=== PATIENT | female | born 1975 | race Caucasian/White ===

== ENCOUNTER 2020-02-22 11:20 | Emergency (ER) | payer OTHER ==
[~2020-02-22] VITALS: Ht 175.3 cm; Wt 56.7 kg
[2020-02-22 11:29] VITALS: BP 106/73
--- NOTE | 2020-02-22 11:35 | NUR ---
PT AMBULATED TO BED4.
--- NOTE | 2020-02-22 12:05 | NUR ---
C/O RLQ ABD PAIN 8/10 X 3 DAYS ACCOMPANIED BY DIARRHEA AND NAUSEA. 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 PT REPORTS NORMAL MESTRUAL FLOW, NO ABNORMAL BLEEDING. ABDOMEN SOFT/FLAT NON TENDER. BOWEL SOUNDS PRESENT X4. DENIES FEVER, CHILLS, VOMITING ETC. BED IN LOW POSITION, SIDE RAIL UP X1
[2020-02-22] MEDS ORDERED: NACL 0.9% 1,000 ML IV SCH (12:11)
[2020-02-22] MEDS ORDERED: KETOROLAC 30 MG/ML VIAL IVP ONE (12:15)
[2020-02-22] MEDS ORDERED: cefTRIAXone 1,000 MG in DEXT 5% MINI-BAG PLUS 50 ML IV ONE (12:15)
--- NOTE | 2020-02-22 12:20 | NUR ---
PT REFUSING LABWORK, IV FLUIDS AND ANTIBIOTICS. DR. MAHARAJ MADE AWARE AND WILL SEE PT.
[2020-02-22 12:39] VITALS: BP 106/73
--- NOTE | 2020-02-22 12:40 | NUR ---
Patient discharged with v/s stable. Written and verbal after care instructions given and explained regarding pyelonephritis . Patient alert, oriented and verbalized understanding of instructions. Ambulatory with steady gait. All questions addressed prior to discharge. ID band removed. Patient advised to follow up with PMD. Rx of cephalexin given. Patient educated on indication of medication including possible reaction and side effects. Opportunity to ask questions provided and answered.
== END 2020-02-22 12:40 | disposition home or self-care (01) ==
LOC: MED 11:20
DX: N12 Tubulo-interstitial nephritis, not specified as acute or chronic (principal); R19.7 Diarrhea, unspecified; F17.210 Nicotine dependence, cigarettes, uncomplicated
CPT/HCPCS: 81002; 81025; 99283

== ENCOUNTER 2020-11-07 13:36 | Emergency (ER) | payer OTHER ==
[~2020-11-07] VITALS: Ht 162.6 cm; Wt 49.9 kg
[2020-11-07 13:36] VITALS: BP 149/84
--- NOTE | 2020-11-07 13:37 | NUR ---
Patient transferred to bed 4 via wheelchair by tech. RN evaluating the patient at bedside.
--- NOTE | 2020-11-07 13:49 | NUR ---
Dr. Velez is evaluating the patient at bedside.
[2020-11-07] MEDS ORDERED: ONDANSETRON 4 MG ODT PO ONE (13:55)
[2020-11-07] MEDS ORDERED: LORazepam 2 MG/ML VIAL IM ONE (13:55)
[2020-11-07] MEDS ORDERED: NACL 0.9% 1,000 ML IV ONE (14:25)
[2020-11-07 14:39] LABS: BASOPHILS % (AUTO) 0.2 % (0.0-2.0); EOSINOPHILS % (AUTO) 0.1 % (0.0-4.0); HEMATOCRIT 33.6 % (36-48); HEMOGLOBIN 10.8 g/dL (12.0-16.0); LYMPHOCYTES # (AUTO) 0.1 K/uL (2.5-16.5); LYMPHOCYTES % (AUTO) 2.2 % (20.5-51.1); MEAN CORPUSCULAR HEMOGLOBIN 25 pg (27-31); MEAN CORPUSCULAR HGB CONC 32 g/dL (33-37); MEAN CORPUSCULAR VOLUME 76.6 fL (80-94); MONOCYTES % (AUTO) 0.5 % (1.7-9.3); PLATELET COUNT (AUTO) 197 K/uL (140-450); RED BLOOD CELL COUNT(AUTO) 4.39 MIL/uL (4.20-5.40); RED CELL DISTRIBUTION WIDTH 15.9 % (11.6-13.7); WHITE BLOOD COUNT (AUTO) 6.2 K/uL (4.8-10.8)
[2020-11-07 14:49] LABS: ANION GAP 13.6 (8-16); CARBON DIOXIDE 25.8 mmol/L (21-32); CREATININE 0.9 mg/dL (0.6-1.3); POTASSIUM 3.4 mmol/L (3.5-5.1)
--- NOTE | 2020-11-07 14:50 | NUR ---
44 Y/O BIB SPOUSE, PT PRESENTS TO ED WITH NAUSEA, MENSTRUAL CRAMPS AND UPPER EXTREMITY PAIN THAT STARTED TODAY. PT STATES "WHEN I GET CLOSER TO MY PERIOD, I GET REALLY BAD CRAMPS AND THE PAIN IS SO BAD I WANT TO PASS OUT". SKIN IS PINK/WARM/DRY; AAOX3 WITH EVEN AND STEADY GAIT; LUNGS CLEAR BL; HR EVEN AND REGULAR; PT DENIES ANY FEVER, CP, SOB, OR COUGH AT THIS TIME; PATIENT STATES PAIN OF 10/10 AT THIS TIME; VSS; PATIENT POSITIONED FOR COMFORT; HOB ELEVATED; BEDRAILS UP X2; BED DOWN. ER MD MADE AWARE OF PT STATUS PMH: IV DRUG USE, METH USE NKA MED: UNABLE TO OBTAIN
[2020-11-07 14:55] LABS: ALBUMIN 3.4 g/dL (3.4-5.0); TOTAL BILIRUBIN 0.9 mg/dL (0.0-1.0)
--- NOTE | 2020-11-07 15:30 | NUR ---
Dr. Velez is reevaluating patient at bedside.
--- NOTE | 2020-11-07 15:50 | NUR ---
Patient taken to CT scan via wheelchair by tech.
[2020-11-07] MEDS ORDERED: NAPR-54 PO (17:06)
[2020-11-07 17:23] LABS: BARBITURATE, URINE NEGATIVE ng/ml (NEG <=200); BENZODIAZEPINE, URINE NEGATIVE ng/mL (NEG <=200); CANNABINOID, URINE POSITIVE ng/mL (NEG <=50); COCAINE, URINE NEGATIVE ng/mL (NEG <=300); OPIATE, URINE NEGATIVE ng/mL (NEG <=2000); PHENCYCLIDINE SCREEN,URINE NEGATIVE ng/mL (NEG <=25)
[2020-11-07 17:39] VITALS: BP 108/55
--- NOTE | 2020-11-07 17:40 | NUR ---
Patient discharged with v/s stable. Written and verbal after care instructions given and explained. Patient alert, oriented and verbalized understanding of instructions. Ambulatory with to car. All questions addressed prior to discharge. ID band removed. Patient advised to follow up with PMD. Rx of NAPROXEN given. Patient educated on indication of medication including possible reaction and side effects. Opportunity to ask questions provided and answered.
--- NOTE | 2020-11-10 18:48 | NUR ---
LATE ENTRY- 0.9% NS BOLUS DISCONTINUED AT 1545
== END 2020-11-07 17:20 | disposition home or self-care (01) ==
LOC: MED 13:36
DX: N94.6 Dysmenorrhea, unspecified (principal); F15.10 Other stimulant abuse, uncomplicated; F17.210 Nicotine dependence, cigarettes, uncomplicated
CPT/HCPCS: 36415; 71045; 71275; 74174; 80053; 80305; 81025; 84484; 84702; 84703; 85025; 93005; 96360; 96372; 99285; J2060; J7030; Q0162; Q9967

== ENCOUNTER 2021-02-17 14:02 | Emergency (ER) | payer OTHER, SELFPAY ==
[~2021-02-17] VITALS: Ht 175.3 cm; Wt 56.7 kg
[~2021-02-17 14:02] MED LIST: NAPR-54 PO
[2021-02-17 14:20] VITALS: BP 140/82
--- NOTE | 2021-02-17 14:29 | NUR ---
Patient ambulated with steady gait to bed 2.
--- NOTE | 2021-02-17 14:45 | NUR ---
45/F presents to ED with c/o intermittent fever and right lower abdominal pain. Patient states she started her period yesterday and has experienced similar symptoms in the past while on her period. Patient also states she has had a nonproductive cough and painful urination, denies recent exposure to covid to her knowledge. Denies chest pain, sob, nausea, vomiting or diarrhea.
[2021-02-17 15:03] LABS: BASOPHILS % (AUTO) 0.4 % (0.0-2.0); HEMATOCRIT 38.9 % (36-48); HEMOGLOBIN 12.4 g/dL (12.0-16.0); LYMPHOCYTES # (AUTO) 0.3 K/uL (2.5-16.5); MEAN CORPUSCULAR HEMOGLOBIN 25 pg (27-31); MEAN CORPUSCULAR HGB CONC 32 g/dL (33-37); MEAN CORPUSCULAR VOLUME 76.7 fL (80-94); MONOCYTES # (AUTO) 0.6 K/uL (0.8-1.0); MONOCYTES % (AUTO) 6.1 % (1.7-9.3); NEUTROPHILS # (AUTO) 8.8 K/uL (1.8-7.7); NEUTROPHILS % (AUTO) 90.5 % (42.2-75.2); PLATELET COUNT (AUTO) 195 K/uL (140-450); RED BLOOD CELL COUNT(AUTO) 5.06 MIL/uL (4.20-5.40); RED CELL DISTRIBUTION WIDTH 16.6 % (11.6-13.7); WHITE BLOOD COUNT (AUTO) 9.7 K/uL (4.8-10.8)
[2021-02-17] MEDS: NACL 0.9% 1,000 ML IV ONE (15:04)
[2021-02-17] MEDS: KETOROLAC 30 MG/ML VIAL IVP ONE (15:04)
[2021-02-17] MEDS: ACETAMINOPHEN 325 MG TAB PO ONE (15:05)
[2021-02-17 15:16] LABS: ALBUMIN 3.9 g/dL (3.4-5.0); CARBON DIOXIDE 26.6 mmol/L (21-32); CREATININE 0.9 mg/dL (0.6-1.3); POTASSIUM 3.6 mmol/L (3.5-5.1); TOTAL BILIRUBIN 0.6 mg/dL (0.0-1.0)
--- NOTE | 2021-02-17 15:48 | NUR ---
Patient taken to CT via gurney.
--- NOTE | 2021-02-17 15:58 | NUR ---
Patient returned from CT via [facility].
[2021-02-17 17:05] LABS: APPEARANCE,URINE SL CLOUDY (CLEAR); BILIRUBIN,URINE 1+ (NEGATIVE); BLOOD, URINE 3+ (NEGATIVE); COLOR,URINE RED (YELLOW); LEUKOCYTE ESTERASE ,URINE 2+ (NEGATIVE); NITRITE, URINE POSITIVE (NEGATIVE); UGLUCOSE NEGATIVE (NEGATIVE)
[2021-02-17 17:27] LABS: RBC,URINE >100 /HPF (0-5); WBC,URINE 16-25 (MOD) /HPF (0-5)
[2021-02-17] MEDS ORDERED: cefTRIAXone 1,000 MG VIAL ONE (17:57)
[2021-02-17] MEDS ORDERED: NAPR-54 PO (18:01)
[2021-02-17] MEDS ORDERED: CEPH-588 PO (18:01)
--- NOTE | 2021-02-17 19:00 | NUR ---
Patient discharged with v/s stable. Written and verbal after care instructions given and explained. Patient alert, oriented and verbalized understanding of instructions. Ambulatory with steady gait. All questions addressed prior to discharge. ID band removed. Patient advised to follow up with PMD. Rx of KEFLEX AND NAPROSYN given. Patient educated on indication of medication including possible reaction and side effects. Opportunity to ask questions provided and answered.
[2021-02-17 19:11] VITALS: BP 129/61
== END 2021-02-17 19:00 | disposition home or self-care (01) ==
LOC: MED 14:05
DX: N39.0 Urinary tract infection, site not specified (principal); Z20.822 Contact with and (suspected) exposure to COVID-19; F17.210 Nicotine dependence, cigarettes, uncomplicated; Z79.899 Other long term (current) drug therapy; Z98.890 Other specified postprocedural states; Z71.6 Tobacco abuse counseling
CPT/HCPCS: 71045; 74177; 80053; 81001; 81025; 83690; 84703; 85025; 87086; 87426; 96361; 96365; 99285; J0696; J1885; J7030; Q0092; Q9967; U0003

== ENCOUNTER 2021-04-17 18:41 | Emergency (ER) | payer OTHER, SELFPAY ==
[~2021-04-17] VITALS: Ht 175.3 cm; Wt 54.4 kg
[~2021-04-17 18:41] MED LIST changes: +CEPH-588 PO
[2021-04-17 18:57] VITALS: BP 126/76
--- NOTE | 2021-04-17 19:21 | NUR ---
Dr. Obrien examining patient.
[2021-04-17] MEDS ORDERED: CEPH-588 PO (19:39)
[2021-04-17 19:55] VITALS: BP 114/79
--- NOTE | 2021-04-17 19:55 | NUR ---
Patient discharged with v/s stable. Written and verbal after care instructions given and explained. Patient verbalized understanding. Ambulatory with steady gait. All questions addressed prior to discharge. Advised to follow up with PMD.
--- NOTE | 2021-04-17 19:55 | NUR ---
NO NURSING INTERVENTIONS NEEDED.
== END 2021-04-17 19:55 | disposition home or self-care (01) ==
LOC: MED 18:41
DX: S60.562A Insect bite (nonvenomous) of left hand, initial encounter (principal); Z79.2 Long term (current) use of antibiotics; Z79.1 Long term (current) use of non-steroidal anti-inflammatories (NSAID); W57.XXXA Bitten or stung by nonvenomous insect and other nonvenomous arthropods, initial encounter; Y92.89 Other specified places as the place of occurrence of the external cause; Y93.89 Activity, other specified; Y99.8 Other external cause status
CPT/HCPCS: 99284

== ENCOUNTER 2021-06-11 04:11 | Emergency (ER) | payer OTHER ==
--- NOTE | 2021-06-11 04:22 | NUR ---
CALLED PT IN LOBBY, OUTSIDE AND TENT. NO ANSWER.
--- NOTE | 2021-06-11 04:39 | NUR ---
CALLED PT IN LOBBY, OUTSIDE AND TENT. NO ANSWER.
--- NOTE | 2021-06-11 04:44 | NUR ---
CALLED PT IN LOBBY, OUTSIDE AND TENT. NO ANSWER.
--- NOTE | 2021-06-11 04:45 | NUR ---
CALLED PT'S CELL PHONE, WENT STRAIGHT TO VOIC[employer].
[2021-06-12] MEDS ORDERED: CIPR500T4 PO (15:46)
[2021-06-12] MEDS ORDERED: IBUP-2213 PO (15:46)
== END 2021-06-11 04:45 | disposition left against medical advice (07) ==
LOC: MED 04:11
DX: Z53.21 Procedure and treatment not carried out due to patient leaving prior to being seen by health care provider (principal)

== ENCOUNTER 2021-06-12 11:02 | Emergency (ER) | payer OTHER ==
[~2021-06-12] VITALS: Ht 175.3 cm; Wt 56.7 kg
[2021-06-12 11:30] VITALS: BP 125/67
[2021-06-12] MEDS ORDERED: MORPHINE SULFATE 4 MG/ML SYR IM ONE (12:45)
[2021-06-12] MEDS ORDERED: ACETAMINOPHEN EXTRA STRENGTH 500 MG TAB PO ONE (12:45)
[2021-06-12 13:19] LABS: BASOPHILS % (AUTO) 0.5 % (0.0-2.0); EOSINOPHILS % (AUTO) 0.1 % (0.0-4.0); HEMATOCRIT 37.4 % (36-48); LYMPHOCYTES # (AUTO) 0.7 K/uL (2.5-16.5); LYMPHOCYTES % (AUTO) 8.5 % (20.5-51.1); MEAN CORPUSCULAR HEMOGLOBIN 24 pg (27-31); MEAN CORPUSCULAR HGB CONC 32 g/dL (33-37); MEAN CORPUSCULAR VOLUME 75.7 fL (80-94); MONOCYTES # (AUTO) 0.3 K/uL (0.8-1.0); NEUTROPHILS # (AUTO) 7.6 K/uL (1.8-7.7); NEUTROPHILS % (AUTO) 86.9 % (42.2-75.2); PLATELET COUNT (AUTO) 246 K/uL (140-450); RED BLOOD CELL COUNT(AUTO) 4.95 MIL/uL (4.20-5.40); WHITE BLOOD COUNT (AUTO) 8.7 K/uL (4.8-10.8)
[2021-06-12 13:48] LABS: ALBUMIN 3.4 g/dL (3.4-5.0); ANION GAP 15.6 (8-16); CARBON DIOXIDE 25.1 mmol/L (21-32); CREATININE 0.7 mg/dL (0.6-1.3); POTASSIUM 3.7 mmol/L (3.5-5.1); TOTAL BILIRUBIN 0.4 mg/dL (0.0-1.0)
[2021-06-12] MEDS ORDERED: IBUP-2213 PO (15:46)
[2021-06-12] MEDS ORDERED: CIPR500T4 PO (15:46)
[2021-06-12 15:50] VITALS: BP 122/62
--- NOTE | 2021-06-12 15:57 | NUR ---
Patient discharged with v/s stable. Written and verbal after care instructions given and explained. Patient alert, oriented and verbalized understanding of instructions. Ambulatory with steady gait. All questions addressed prior to discharge. ID band removed. Patient advised to follow up with PMD. Rx of CIPRO,IBU given. Patient educated on indication of medication including possible reaction and side effects. Opportunity to ask questions provided and answered.
[2021-06-12 16:42] LABS: BILIRUBIN,URINE 1+ (NEGATIVE); BLOOD, URINE 3+ (NEGATIVE); LEUKOCYTE ESTERASE ,URINE TRACE (NEGATIVE); NITRITE, URINE POSITIVE (NEGATIVE); PH,URINE 5.5 (5.0-9.0); UGLUCOSE NEGATIVE (NEGATIVE)
[2021-06-12 17:01] LABS: APPEARANCE,URINE BLOODY (CLEAR); COLOR,URINE RED (YELLOW)
[2021-06-12 17:03] LABS: RBC,URINE TOO NUMEROUS TO COUN /HPF (0-5)
== END 2021-06-12 15:50 | disposition home or self-care (01) ==
LOC: MED 11:02
DX: R10.30 Lower abdominal pain, unspecified (principal); N93.9 Abnormal uterine and vaginal bleeding, unspecified
CPT/HCPCS: 36415; 76856; 80053; 81001; 81025; 83690; 84702; 85025; 87086; 93005; 99285

== ENCOUNTER 2021-06-15 15:19 | Emergency (ER) | payer OTHER ==
[~2021-06-15] VITALS: Ht 175.3 cm; Wt 56.7 kg
[~2021-06-15 15:19] MED LIST changes: +CIPR500T4 PO; +IBUP-2213 PO
[2021-06-15 15:29] VITALS: BP 131/73
[2021-06-15] MEDS ORDERED: CEFP200T20 PO (16:02)
[2021-06-15] MEDS ORDERED: PHEN95TA24 PO (16:02)
[2021-06-15 16:28] VITALS: BP 131/73
--- NOTE | 2021-06-15 16:28 | NUR ---
NO NURSING INTERVENTIONS PROVIDED
== END 2021-06-15 16:30 | disposition home or self-care (01) ==
LOC: MED 15:19
DX: N30.20 Other chronic cystitis without hematuria (principal)
CPT/HCPCS: 99283

== ENCOUNTER 2022-02-18 12:25 | Emergency (ER) | payer MEDICAID, OTHER ==
[~2022-02-18] VITALS: Ht 175.3 cm; Wt 57.6 kg
[~2022-02-18 12:25] MED LIST changes: +CEFP200T20 PO; +PHEN95TA24 PO
[2022-02-18 12:27] VITALS: BP 120/82
--- NOTE | 2022-02-18 12:38 | NUR ---
C/O 6/10 R ELBOW PAIN S/P HIT THE WALL X 2 DAYS. DENIES N/V/D; SKIN IS PINK/WARM/DRY; AAOX4 WITH EVEN AND STEADY GAIT; LUNGS CLEAR BL; HR EVEN AND REGULAR; PT DENIES ANY FEVER, CP, SOB, OR COUGH AT THIS TIME.
--- NOTE | 2022-02-18 12:39 | NUR ---
PT TAKEN TO X RAY VIA W/C.
--- NOTE | 2022-02-18 12:51 | NUR ---
Patient being evaluated by JANKI VANCE at [facility].
[2022-02-18 12:54] VITALS: BP 117/75
== END 2022-02-18 13:31 | disposition home or self-care (01) ==
LOC: MED 12:25
DX: S50.01XA Contusion of right elbow, initial encounter (principal); Z79.899 Other long term (current) drug therapy; W22.8XXA Striking against or struck by other objects, initial encounter; Y93.89 Activity, other specified; Y92.89 Other specified places as the place of occurrence of the external cause; Y99.8 Other external cause status
CPT/HCPCS: 73080; 99283

== ENCOUNTER 2022-04-05 18:43 | Emergency (ER) | payer MEDICAID ==
[~2022-04-05] VITALS: Ht 175.3 cm; Wt 56.2 kg
[2022-04-05 19:13] VITALS: BP 139/84
--- NOTE | 2022-04-05 19:51 | NUR ---
Dr. Bean examining patient.
[2022-04-05 19:53] LABS: APPEARANCE,URINE SL CLOUDY (CLEAR); BILIRUBIN,URINE NEGATIVE (NEGATIVE); BLOOD, URINE 2+ (NEGATIVE); COLOR,URINE DARK YELLOW (YELLOW); LEUKOCYTE ESTERASE ,URINE NEGATIVE (NEGATIVE); NITRITE, URINE POSITIVE (NEGATIVE); UGLUCOSE NEGATIVE (NEGATIVE)
[2022-04-05] MEDS ORDERED: cephALEXin 500 MG CAP PO ONE (20:00)
[2022-04-05] MEDS ORDERED: CIPR500T4 PO (20:06)
[2022-04-05] MEDS ORDERED: ONDA-188 PO (20:07)
[2022-04-05 20:30] VITALS: BP 126/60
--- NOTE | 2022-04-05 20:30 | NUR ---
Patient discharged with v/s stable. Written and verbal after care instructions given and explained. Patient alert, oriented and verbalized understanding of instructions. Ambulatory with steady gait. All questions addressed prior to discharge. ID band removed. Patient advised to follow up with PMD. Rx of CIPRO , ZOFRAN given. Patient educated on indication of medication including possible reaction and side effects. Opportunity to ask questions provided and answered.
--- NOTE | 2022-04-08 17:31 | NUR ---
LATE ENTRY. RECEIVED POSITIVE URINE CULTURE. FORM GIVEN TO DR EDWARDS, TREATMENT APPROPRIATE. FORM PLACED IN BINDER.
== END 2022-04-05 20:30 | disposition home or self-care (01) ==
LOC: MED 18:43
DX: N39.0 Urinary tract infection, site not specified (principal); Z87.448 Personal history of other diseases of urinary system; Z79.899 Other long term (current) drug therapy; Z79.2 Long term (current) use of antibiotics; Z79.1 Long term (current) use of non-steroidal anti-inflammatories (NSAID)
CPT/HCPCS: 81001; 87086; 99283

== ENCOUNTER 2023-02-08 11:13 | Emergency (ER) | payer MEDICAID ==
[~2023-02-08] VITALS: Ht 175.3 cm; Wt 56.7 kg
[~2023-02-08 11:13] MED LIST changes: +ONDA-188 PO
[2023-02-08 11:25] VITALS: BP 130/92; PULSE 88; RESP 18; TEMP 98.1; O2SAT 98
[2023-02-08 12:02] VITALS: BP 130/92; PULSE 88; RESP 18; TEMP 98.1
[2023-02-08 12:03] VITALS: O2SAT 98
[2023-02-08 12:10] LABS: BASOPHILS % (AUTO) 0.5 % (0.0-2.0); EOSINOPHILS # (AUTO) 0.1 K/uL (0-0.4); EOSINOPHILS % (AUTO) 1.8 % (0.0-4.0); HEMOGLOBIN 11.6 g/dL (12.0-16.0); LYMPHOCYTES # (AUTO) 1.5 K/uL (2.5-16.5); LYMPHOCYTES % (AUTO) 26.6 % (20.5-51.1); MEAN CORPUSCULAR HEMOGLOBIN 27 pg (27-31); MEAN CORPUSCULAR HGB CONC 33 g/dL (33-37); MEAN CORPUSCULAR VOLUME 82.2 fL (80-94); MONOCYTES # (AUTO) 0.4 K/uL (0.8-1.0); MONOCYTES % (AUTO) 7.7 % (1.7-9.3); NEUTROPHILS # (AUTO) 3.5 K/uL (1.8-7.7); NEUTROPHILS % (AUTO) 63.4 % (42.2-75.2); PLATELET COUNT (AUTO) 212 K/uL (140-450); RED BLOOD CELL COUNT(AUTO) 4.26 MIL/uL (4.20-5.40); RED CELL DISTRIBUTION WIDTH 18.4 % (11.6-13.7); WHITE BLOOD COUNT (AUTO) 5.5 K/uL (4.8-10.8)
[2023-02-08 12:28] LABS: ANION GAP 8.5 (8-16); CALCIUM 8.7 mg/dL (8.5-10.1); CARBON DIOXIDE 31.7 mmol/L (21-32); CREATININE 0.9 mg/dL (0.6-1.3); INR 0.97 (0.8-1.2); PARTIAL THROMBOPLASTIN TIME 23.9 secs (22-35.6); POTASSIUM 4.2 mmol/L (3.5-5.1); PROTHROMBIN TIME 10.2 secs (10.8-13.4)
[2023-02-08 12:33] LABS: APPEARANCE,URINE CLEAR (CLEAR); BILIRUBIN,URINE NEGATIVE (NEGATIVE); BLOOD, URINE 3+ (NEGATIVE); COLOR,URINE YELLOW (YELLOW); LEUKOCYTE ESTERASE ,URINE NEGATIVE (NEGATIVE); NITRITE, URINE NEGATIVE (NEGATIVE); PROTEIN,URINE NEGATIVE (NEGATIVE); UGLUCOSE NEGATIVE (NEGATIVE); UROBILINOGEN,URINE 0.2 EU/dL (0.2 - 1)
[2023-02-08 12:49] LABS: BACTERIA,URINE 3+ /HPF (None Seen); RBC,URINE 20-50 /HPF (0-5); WBC,URINE 0-5 /HPF (0-5)
[2023-02-08] MEDS ORDERED: IBUP-2213 PO (14:24)
[2023-02-08] MEDS ORDERED: MEDR10TA PO (14:24)
[2023-02-08 19:25] LABS: SQUAMOUS EPITHELIAL CELL,UR 4-10 (MOD) /LPF (0-3 (FEW))
[2023-02-08 19:26] LABS: MUCUS,URINE None Seen /LPF (None Seen); TRICHOMONAS,URINE None Seen /HPF (None Seen); WHITE BLOOD CELL CASTS,URINE None Seen /LPF (None Seen); YEAST,URINE None Seen /HPF (None Seen)
== END 2023-02-08 14:55 | disposition home or self-care (01) ==
LOC: MED 11:13
DX: N93.8 Other specified abnormal uterine and vaginal bleeding (principal); N83.202 Unspecified ovarian cyst, left side; D64.9 Anemia, unspecified; Z79.899 Other long term (current) drug therapy; Z98.890 Other specified postprocedural states
CPT/HCPCS: 36415; 76856; 80048; 81001; 81025; 85025; 85610; 85730; 86886; 86900; 86901; 87086; 93976; 99284; Q0092

== ENCOUNTER 2023-12-05 10:20 | Emergency (ER) | payer SELFPAY ==
[~2023-12-05] VITALS: Ht 175.3 cm; Wt 59.0 kg
[~2023-12-05 10:20] MED LIST changes: +MEDR10TA PO; +NAPR-337 PO; -NAPR-54 PO
[2023-12-05 10:39] VITALS: BP 118/74; PULSE 107; RESP 16; TEMP 97.7; O2SAT 98
[2023-12-05] MEDS: NACL 0.9% 1,000 ML IV ONE (11:24)
[2023-12-05] MEDS: KETOROLAC 30 MG/ML VIAL IVP ONE (11:27)
[2023-12-05 11:38] LABS: BASOPHILS % (AUTO) 0.5 % (0.0-2.0); EOSINOPHILS % (AUTO) 0.5 % (0.0-4.0); HEMATOCRIT 44.4 % (36-48); HEMOGLOBIN 14.7 g/dL (12.0-16.0); LYMPHOCYTES # (AUTO) 0.9 K/uL (2.5-16.5); LYMPHOCYTES % (AUTO) 9.5 % (20.5-51.1); MEAN CORPUSCULAR HEMOGLOBIN 29 pg (27-31); MEAN CORPUSCULAR HGB CONC 33 g/dL (33-37); MONOCYTES # (AUTO) 0.7 K/uL (0.8-1.0); MONOCYTES % (AUTO) 7.5 % (1.7-9.3); NEUTROPHILS # (AUTO) 7.6 K/uL (1.8-7.7); PLATELET COUNT (AUTO) 187 K/uL (140-450); RED BLOOD CELL COUNT(AUTO) 5.11 MIL/uL (4.20-5.40); RED CELL DISTRIBUTION WIDTH 17.2 % (11.6-13.7); WHITE BLOOD COUNT (AUTO) 9.2 K/uL (4.8-10.8)
[2023-12-05 11:50] LABS: ANION GAP 15.8 (8-16); CALCIUM 8.7 mg/dL (8.5-10.1); CARBON DIOXIDE 25.8 mmol/L (21-32); CREATININE 0.9 mg/dL (0.6-1.3); POTASSIUM 3.6 mmol/L (3.5-5.1)
[2023-12-05] MEDS ORDERED: IBUP-2213 PO (12:57)
[2023-12-05] MEDS ORDERED: CEPH-588 PO (12:57)
[2023-12-05 13:10] VITALS: BP 118/74; PULSE 107; RESP 16; TEMP 97.7; O2SAT 98
[2023-12-05 13:42] LABS: COLOR,URINE BLOODY (YELLOW)
[2023-12-05 13:43] LABS: APPEARANCE,URINE TURBID (CLEAR); PROTEIN,URINE TRACE (NEGATIVE)
[2023-12-05 13:45] LABS: BLOOD, URINE LARGE (NEGATIVE); UGLUCOSE NEGATIVE (NEGATIVE)
[2023-12-05 13:46] LABS: BILIRUBIN,URINE NEGATIVE (NEGATIVE); NITRITE, URINE POSITIVE (NEGATIVE); UROBILINOGEN,URINE 0.2 EU/dL (0.2 - 1)
[2023-12-05 13:47] LABS: LEUKOCYTE ESTERASE ,URINE NEGATIVE (NEGATIVE)
[2023-12-05 13:51] LABS: RBC,URINE TOO NUMEROUS TO COUN /HPF (0-5)
[2023-12-05 13:52] LABS: BACTERIA,URINE 1+ /HPF (None Seen); WBC,URINE 0-5 /HPF (0-5)
[2023-12-05 13:55] LABS: SQUAMOUS EPITHELIAL CELL,UR 0-3 (FEW) /LPF (0-3 (FEW))
== END 2023-12-05 13:10 | disposition home or self-care (01) ==
LOC: MED 10:20
DX: N39.0 Urinary tract infection, site not specified (principal); M54.50 Low back pain, unspecified; Z87.448 Personal history of other diseases of urinary system; Z79.899 Other long term (current) drug therapy
CPT/HCPCS: 36415; 80048; 81001; 81025; 83690; 85025; 87086; 96361; 96374; 99283; J1885